=== PATIENT | male | born 1985 | race Two or more races ===

== ENCOUNTER 2021-05-23 13:38 | Emergency (ER) | payer OTHER ==
[2021-05-23 13:56] VITALS: BP 113/64; PULSE 63; TEMP 97.8; BMI 26.2
[2021-05-23] MEDS ORDERED: KETOROLAC TROMETHAMINE 30 MG/1 ML VIAL IM ONE (16:02)
[2021-05-23] MEDS ORDERED: diazePAM 5 MG TABLET PO ONE (16:02)
[2021-05-23] MEDS ORDERED: diazePAM 5 MG TABLET ONE (16:04)
[2021-05-23] MEDS ORDERED: KETOROLAC TROMETHAMINE 30 MG/1 ML VIAL ONE (16:04)
== END 2021-05-23 17:24 ==
LOC: JERFT 13:38
PROC: 3E0233Z Introduction of Anti-inflammatory into Muscle, Percutaneous Approach (ICD-10-PCS; principal; 2021-05-23)
DX: M79.10 Myalgia, unspecified site (principal); V86.5 Driver of special all-terrain or other off-road motor vehicle injured in nontraffic accident
CPT/HCPCS: 72040-TC; 72070-TC-FY; 72100-TC-FY; 99285-25

== ENCOUNTER 2024-05-28 19:06 | Emergency (ER) | payer OTHER ==
[2024-05-28 19:37] VITALS: BP 142/82; PULSE 77; RESP 18; TEMP 98; BMI 24.3
[2024-05-28] MEDS ORDERED: KETOROLAC TROMETHAMINE 15 MG/ML VIAL ONE (20:17)
[2024-05-28] MEDS ORDERED: LIDOCAINE 5% TOPICAL PATCH ONE (20:17)
[2024-05-28] MEDS: LIDOCAINE 5% TOPICAL PATCH TP ONE (21:25)
[2024-05-28] MEDS: KETOROLAC TROMETHAMINE 15 MG/ML VIAL IM ONE (21:25)
[2024-05-28] MEDS ORDERED: LIDOCAINE PATCH REMOVAL MC SCH (22:00)
== END 2024-05-28 21:23 | disposition home or self-care (01) ==
LOC: JERFT 19:06 → JER 19:06 → JERFT 21:23
PROC: 3E0133Z Introduction of Anti-inflammatory into Subcutaneous Tissue, Percutaneous Approach (ICD-10-PCS; principal; 2024-05-28)
DX: M79.10 Myalgia, unspecified site (principal)
CPT/HCPCS: 99284-25